=== PATIENT | male | born 1955 | race Caucasian/White ===

== ENCOUNTER → 2024-04-05 10:49 | Outpatient (REF) | payer OTHER, SELFPAY | LOC: RAD 10:49 | PROVIDERS: ATTENDING PHYSICIAN Internal Medicine | DX: M54.6 Pain in thoracic spine (principal); R05.3 Chronic cough; Z86.16 Personal history of COVID-19 | CPT/HCPCS: 71046; 72072 ==

== ENCOUNTER → 2024-08-16 08:41 | Outpatient (REF) | payer OTHER, SELFPAY | LOC: RAD 08:41 | PROVIDERS: ATTENDING PHYSICIAN Hospitalist; FAMILY PHYSICIAN Internal Medicine | DX: M25.531 Pain in right wrist (principal) | CPT/HCPCS: 73100 ==